=== PATIENT | male | born 1975 | race American Indian/Alaskan Native ===

== ENCOUNTER 2018-05-04 09:54 | Emergency (ER) | payer OTHER ==
[2018-05-04] MEDS ORDERED: TORADOL IM ONE (12:06)
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
[2018-05-04 14:02] VITALS: BP 125/78
== END 2018-05-04 14:01 | disposition home or self-care (01) ==
LOC: ED 09:54
DX: M25.512 Pain in left shoulder (principal); M79.10 Myalgia, unspecified site; F17.200 Nicotine dependence, unspecified, uncomplicated; Z91.018 Allergy to other foods; V89.2XXA Person injured in unspecified motor-vehicle accident, traffic, initial encounter; Y93.89 Activity, other specified; Y92.488 Other paved roadways as the place of occurrence of the external cause; Y99.8 Other external cause status
CPT/HCPCS: 96372; 99282; J1885